=== PATIENT | male | born 1985 | race African-American/Black ===

== ENCOUNTER 2017-08-13 11:43 | Emergency (ER) | payer SELFPAY ==
[2017-08-13 11:49] VITALS: BP 138/69
--- NOTE | 2017-08-13 13:06 | ER Document Report ---
ED Suture/Wound Recheck - General Chief Complaint: Suture Removal Stated Complaint: SUTURE REMOVAL Time Seen by Provider: 08/13/17 13:01 Mode of Arrival: Ambulatory TRAVEL OUTSIDE OF THE [place] IN LAST 30 DAYS: No - HPI Notes: 32-year-old male presents today with complaints AV suture remaining in his right distal fourth phalanges 1 month after he had a laceration from punching a wall. Denies any fevers or chills. Denies any drainage from wound. Reports full range of motion of finger. Per patient, states he was told to "leave stitch in" by the person who sutured him. Patient was not sutured here. Denies any chest pain, shortness of breath, nausea, vomiting, blurred vision, double vision, loss of vision, numbness or tingling bilateral upper extremities. Denies any limited range of motionin his affected finger. Tetanus is up-to-date. - Related Data Allergies/Adverse Reactions: No Known Allergies Allergy (Verified 08/13/17 11:44) Past Medical History - General Information source: Patient - Social History Smoking Status: Never Smoker Chew tobacco use (# tins/day): No Frequency of alcohol use: None Drug Abuse: None Family History: None Patient has suicidal ideation: No Patient has homicidal ideation: No Renal/ Medical History: Denies: Hx Peritoneal Dialysis Review of Systems - Review of Systems Constitutional: No symptoms reported EENT: No symptoms reported Cardiovascular: No symptoms reported Respiratory: No symptoms reported Musculoskeletal: No symptoms reported Skin: See HPI Hematologic/Lymphatic: No symptoms reported Neurological/Psychological: No symptoms reported Physical Exam - Vital signs Vitals: Temp Pulse Resp BP Pulse Ox 98.5 F 65 16 138/69 H 98 08/13/17 11:48 08/13/17 11:48 08/13/17 11:48 08/13/17 11:48 08/13/17 11:48 - Notes Notes: PHYSICAL EXAMINATION: GENERAL: Well-appearing, well-nourished and in no acute distress. HEAD: Atraumatic, normocephalic. EYES: Pupils equal round and reactive to light, extraocular movements intact, sclera anicteric, conjunctiva are normal. ENT: Nares patent, oropharynx clear without exudates. Moist mucous membranes. NECK: Normal range of motion, supple without lymphadenopathy LUNGS: Breath sounds clear to auscultation bilaterally and equal. No wheezes rales or rhonchi. HEART: Regular rate and rhythm without murmurs ABDOMEN: Soft, nontender, nondistended abdomen. No guarding, no rebound. No masses appreciated. Musculoskeletal: Normal range of motion, no pitting or edema. No cyanosis. NEUROLOGICAL: Cranial nerves grossly intact. Normal speech, normal gait. Normal sensory, motor exams PSYCH: Normal mood, normal affect. SKIN: Warm, Dry, normal turgor, no rashes or lesions noted. One remaining stitch to the distal PIP of right fourth phalange E. No open wounds or drainage. Noted dorasl aspect without erythema, warmth to touch, induration. old healing laceration. non circumferential. Radial pulses + 2 bilaterally and equally. Dtr + 2 bilaterally and equally in BUE. Cap refill < 3 seconds. Course - Re-evaluation Re-evalutation: 08/13/17 13:07 Patient verbalized understanding for need for suture removal. Site clean with normal saline. A 11 blade used to remove 150 stitch. No other stitches remain. They cleaned with normal saline, bacitracin applied and Band-Aid placed over the area. She tolerated procedure without any incident. - Vital Signs Vital signs: Temp Pulse Resp BP Pulse Ox 98.5 F 65 16 138/69 H 98 08/13/17 11:48 08/13/17 11:48 08/13/17 11:48 08/13/17 11:48 08/13/17 11:48 Discharge - Discharge Clinical Impression: Visit for suture removal Condition: Good Instructions: Suture Removal Additional Instructions: Area clean, monitor for any signs and symptoms of infection such as redness, swelling, drainage, warmth to touch. Advised to return to the ER if any signs or symptoms became worse. Take [id number] Motrin and Tylenol as needed for any fevers or pain. Follow up with primary care within 1-2 days. All questions and concerns answered by this provider. Patient/family states would follow plan of care and agreed to plan of care. Patient was discharged home and off unit without incident. Please excuse any errors in this document was done by dragon dictation.
== END 2017-08-13 13:40 | disposition home or self-care (01) ==
LOC: ER 11:43
DX: S61.214D Laceration without foreign body of right ring finger without damage to nail, subsequent encounter (principal); W22.01XD Walked into wall, subsequent encounter
CPT/HCPCS: 99282